=== PATIENT | male | born 1980 | race Caucasian/White ===

== ENCOUNTER 2019-09-14 06:08 | Outpatient (CLI) | payer OTHER, MEDICAID, SELFPAY ==
[2019-09-14 16:38] LABS: SARS-CoV-2 RNA PCR Negative
== END 2019-09-14 06:09 | disposition home or self-care (01) ==
LOC: ANHCOVIDDT 06:09
PROVIDERS: PCP Emergency Medicine; Visit Provider Internal Medicine Gastroenterology
DX: Z01.818 Encounter for other preprocedural examination (principal); Z11.59 Encounter for screening for other viral diseases
CPT/HCPCS: 87635; C9803; U0003

== ENCOUNTER → 2019-09-16 05:29 | Day surgery (SDC) | payer OTHER, MEDICAID, SELFPAY ==
[2019-09-13 10:00] VITALS: BMI 24.0
[2019-09-16 09:10] VITALS: BP 100/69; PULSE 94; RESP 16; TEMP 36.3; O2SAT 100
--- NOTE | 2019-09-16 09:36 | P.CONGI_ITS ---
Assessment and Plan Assessment and plan (1) Quadriplegia, unspecified: Code(s): G82.50 - Quadriplegia, unspecified Status: Acute (2) G tube feedings: Code(s): Z93.1 - Gastrostomy status Status: Acute Assessment and Plan: G-tube is deteriorated plan is for G-tube replacement this will happen today. GI Consult Note Consult date/time: 09/16/19 09:36 HPI: Meliton Richter is a 38 year old male seen because of G-tube malfunction. Patient followed by Dr. Berkowitz as an outpatient. Patient has a distant history of head trauma. He currently is disabled. Because of his disability he requires a G-tube for nutrition endoscopic G-tube was placed 2 years ago at our service. He has had a G-tube for many years prior to this. G- tube recently noted to be deteriorating by his family. He presents today for replacement of the G-tube. Patient is unable to give any additional history. Patient has a distant history of seizure disorder because of head trauma. Review of Systems Review of Systems: ROS unobtainable: Yes unobtainable due to mental status PMFSH Past Medical History Medical History G tube feedings GERD (gastroesophageal reflux disease) Seizures Traumatic brain injury Social History Social History Smoking status: Never smoker Alcohol intake: never Meds Home Medications and Allergies Home Medications Medication Instructions Recorded Confirmed Type rivaroxaban 15 mg tablet 15 mg PO DAILY #90 tablet 05/10/19 09/13/19 Rx albuterol sulfate See Rx Instructions .ROUTE .COMPLEX 06/12/19 09/13/19 History cetirizine 10 mg tablet 10 mg PO DAILY 06/12/19 09/13/19 History lorazepam 2 mg/mL oral concentrate See Rx Instructions .ROUTE 06/12/19 09/16/19 History .COMPLEX PRN metoclopramide HCl 5 mg tablet 5 mg PO .COMPLEX 06/12/19 09/16/19 History ranitidine HCl 75 mg tablet 75 mg PO .COMPLEX 06/12/19 09/13/19 History clotrimazole-betamethasone 1 See Rx Instructions .ROUTE 06/13/19 09/13/19 Rx %-0.05 % topical cream .COMPLEX #90 gm levetiracetam 100 mg/mL oral See Rx Instructions .ROUTE 06/21/19 09/13/19 Rx solution .COMPLEX #225 ml baclofen 10 mg tablet See Rx Instructions .ROUTE 07/11/19 09/13/19 Rx .COMPLEX #135 tablet phenytoin 50 mg chewable tablet See Rx Instructions .ROUTE 07/12/19 09/13/19 Rx .COMPLEX #240 tablet lisinopril 20 mg tablet 20 mg PO DAILY #90 tablet 09/05/19 09/16/19 Rx Allergies Allergy/AdvReac Type Severity Reaction Status Date / Time No Known Allergies Allergy Verified 09/16/19 09:09 Vital Signs Vital Signs - 24 hr 09/16/19 09:10 Temperature 36.3 C L Pulse Rate 94 Respiratory Rate 16 Blood Pressure 100/69 Pulse Oximetry 100 Exam Narrative: Exam Narrative: Physical exam reveals him to be alert. Vital signs are stable. Not able to communicate. He remains in a wheelchair. Physical exam reveals lungs to be clear. Heart without murmur. Abdomen is soft nontender G-tube site appears well healed. The G-tube itself is somewhat deteriorated.
--- NOTE | 2019-09-16 09:38 | P.OPB_ITS ---
Procedure Note - Brief Procedure Note - Brief Date of procedure: 09/16/19 Pre-op diagnosis: malfunctioning G tube Surgeon: Tera Diaz MD G-tube replacement procedure G-tube replacement. Preop diagnosis G-tube malfunction. History of head trauma. Postop diagnosis G-tube replaced with 20 English replacement G-tube. Description of procedure. Informed consent is obtained from patient's family. The risks benefits alternatives and indications are discussed agree to prior the procedure the risks include G-tube male position. Infection period bleeding. Risk for surgery. Or risk for endoscopic placement of G-tube. Old malfunctioning G-tube is removed with traction. No difficulties encountered. 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 Balloon is inflated. Gastric contents are withdrawn from the lumen of the G-tube. Documenting good position of this G-tube. Impression malfunctioning G-tube now replaced with new G-tube. Plan is to resume tube feedings as previously prescribed. Local care to G-tube site is advised with Betadine. Family is advised to replace the G-tube in 1 year unless G-tube replacement is a required earlier. A binder is advised to place her on the G-tube so that is not dislodged by the patient.
--- NOTE | 2019-09-16 11:45 | SUR.PREOP ---
STANDARD BALLOON REPLACEMENT KIT- RIGHT ANGLE BUSTERALEIDABOSTON SCIENTIFIC-ENDOVIVE 20FR [id number]
== END ==
PROVIDERS: PCP Emergency Medicine; Visit Provider Internal Medicine Gastroenterology
PROC: 0DH63UZ Insertion of Feeding Device into Stomach, Percutaneous Approach (ICD-10-PCS; CPT 43246; principal; 2019-09-16 10:00)
DX: K94.23 Gastrostomy malfunction (principal); G82.50 Quadriplegia, unspecified; G40.909 Epilepsy, unspecified, not intractable, without status epilepticus; Z87.820 Personal history of traumatic brain injury
CPT/HCPCS: 43762; 99212; G0463

== ENCOUNTER 2020-01-25 14:11 | Emergency (ER) | payer OTHER, MEDICAID, SELFPAY ==
--- NOTE | ~2020-01-25 | XR_ITS ---
XR G tube replacement w image 01/25/2020 16:19 Indication: Confirmation of G-tube placement Procedure: Single limited portable supine view of the left upper abdomen following contrast administr ation via pre-existing G-tube Comparison: 08/22/2017 Findings: There is normal contrast opacification of the stomach via the G-tube. No evidence for contr ast extravasation. Nonobstructive bowel gas pattern. Impression: 1: Expected position of G-tube with nonobstructive bowel gas pattern. Reviewed, dictated and finalized at location A. Impression: 1: Expected position of G-tube with nonobstructive bowel gas pattern.
[2020-01-25 14:17] VITALS: BP 113/76; PULSE 90; RESP 20; TEMP 37.1; O2SAT 100
[2020-01-25] MEDS: LIDOCAINE HCL 2% GEL UROJET 10 ML PKG (16:01)
--- NOTE | 2020-01-25 16:09 | ED.GENADULT ---
HPI - General Adult General Chief complaint: Unspecified <BOB Polk Last Filed: 01/25/20 17:12> Stated complaint: CLOGGED FEEDING TUBE <BOB Polk Last Filed: 01/25/20 17:12> Time Seen by Provider: 01/25/20 15:15 <BOB Polk Last Filed: 01/25/20 17:12> Source: patient and family <BOB Polk Last Filed: 01/25/20 17:12> Mode of arrival: ambulatory <BOB Polk Last Filed: 01/25/20 17:12> Limitations: altered mental status <BOB Polk Last Filed: 01/25/20 17:12> History of Present Illness HPI narrative: Patient is a 39-year-old male who presents for EMS for evaluation of clogged G-tube patient has longstanding history of G-tube similar occurrences in the past followed by Dr. Collins with gastroenterology. Family denies any other complaints or concerns and notes that the patient has been without issue otherwise <BOB Polk Last Filed: 01/25/20 17:12> Related Data Home medications: Home Medications Medication Instructions Recorded Confirmed cetirizine 10 mg tablet 10 mg PO DAILY 06/12/19 09/13/19 lorazepam 2 mg/mL oral concentrate See Rx Instructions .ROUTE 06/12/19 09/16/19 .COMPLEX PRN metoclopramide HCl 5 mg tablet 5 mg PO .COMPLEX 06/12/19 09/16/19 ranitidine HCl 75 mg tablet 75 mg PO .COMPLEX 06/12/19 09/13/19 <BOB Polk Last Filed: 01/25/20 17:12> Allergies/adverse reactions: Allergies Allergy/AdvReac Type Severity Reaction Status Date / Time No Known Allergies Allergy Verified 01/25/20 14:19 <BOB Polk Last Filed: 01/25/20 17:12> Review of Systems Review of Systems: ROS unobtainable: Yes unobtainable due to medical condition <BOB Polk Last Filed: 01/25/20 17:12> [facility] Past Medical History Medical History: Medical History (Updated 01/25/20 @ 17:12 by Ramsey Mayo PA-C) G tube feedings GERD (gastroesophageal reflux disease) History of gastrostomy tube placement Seizures Traumatic brain injury <Ramsey Mayo PA-C - Last Filed: 01/25/20 17:12> Social History Social History: Social History Smoking status: Never smoker Alcohol intake: never <Ramsey Mayo PA-C - Last Filed: 01/25/20 17:12> Exam Narrative: Exam Narrative: GENERAL: Well-appearing, well-nourished, and in no acute distress. HEAD: Normocephalic, atraumatic. EYES: PERRLA and EOMI. ENT: Nares clear, no rhinorrhea or epistaxis. Mucous membranes moist. CHEST: Clear to auscultation. No respiratory distress. No wheezes rales or rhonchi HEART: Regular rate and rhythm. No murmur heard. Normal peripheral pulses. ABDOMEN: Soft, nontender, nondistended EXTREMITIES: Normal range of motion. No edema. SKIN: Warm, dry, no rash. <BOB Polk Last Filed: 01/25/20 17:12> Course Course Emergency Course: Patient in the room in no distress with family aware of case findings treatment plan and diagnosis G-tube was replaced placement confirmed <Ramsey Mayo PA-C - Last Filed: 01/25/20 17:12> Vital Signs Vital signs: Vital Signs Temperature 37.1 C 01/25/20 14:17 Pulse Rate 90 01/25/20 14:17 Respiratory Rate 01/25/20 14:17 Blood Pressure 113/76 01/25/20 14:17 Pulse Oximetry 100 01/25/20 14:17 Temperature 37.1 C 01/25/20 14:17 Pulse Rate 90 01/25/20 14:17 Respiratory Rate 01/25/20 14:17 Blood Pressure 113/76 01/25/20 14:17 Pulse Oximetry 100 01/25/20 14:17 <BOB Polk Last Filed: 01/25/20 17:12> Vital Signs Temperature 37.1 C 01/25/20 14:17 Pulse Rate 90 09/23/20 14:17 Respiratory Rate 20 01/25/20 14:17 Blood Pressure 113/76 01/25/20 14:17 Pulse Oximetry 100 01/25/20 14:17 Temperature 37.1 C 01/25/20 14:17 Pulse Rate 90 01/25/20 14:17 Resp
[2020-01-25 18:12] VITALS: BP 122/80; PULSE 88; RESP 18; TEMP 36.7; O2SAT 99
== END 2020-01-25 18:13 | disposition home or self-care (01) ==
PROVIDERS: Emergency Provider Emergency Medicine; PCP Emergency Medicine
DX: K94.23 Gastrostomy malfunction (principal); K21.9 Gastro-esophageal reflux disease without esophagitis; G40.909 Epilepsy, unspecified, not intractable, without status epilepticus
CPT/HCPCS: 49450; 99284

== ENCOUNTER 2020-06-26 14:06 | Outpatient (CLI) | payer OTHER, MEDICAID, SELFPAY ==
--- NOTE | ~2020-06-26 | XR_ITS ---
XR chest 1V DATE: 06/26/2020 14:26 INDICATION: Cough TECHNIQUE: AP chest COMPARISON: 03/30/2014 portable AP chest FINDINGS: Heart size appears within normal range. No pulmonary infiltrate or consolidation, pleural e ffusion or pulmonary vascular congestion or pneumothorax. Diffuse osteopenia. IMPRESSION: No active cardiopulmonary disease Reviewed, dictated and finalized at location A. [employer]PER[employer]
== END 2020-06-26 14:07 | disposition home or self-care (01) ==
PROVIDERS: PCP Emergency Medicine; Visit Provider Emergency Medicine
DX: R05 Cough (principal)
CPT/HCPCS: 71045

== ENCOUNTER 2020-11-21 23:43 | Emergency (ER) | payer OTHER, MEDICAID, SELFPAY ==
--- NOTE | ~2020-11-21 | XR_ITS ---
EXAMINATION: XR G tube replacement w image DATE: 11/22/2020 00:40 INDICATION: Replaced percutaneous gastrostomy tube TECHNIQUE: A supine portable AP view of the abdomen and pelvis was obtained. COMPARISON: 01/25/2020 FINDINGS: Percutaneous gastrostomy tube bulb within the body of the stomach. Contrast extends to the gastrostom y tube into the stomach and into the second portion of the duodenum. Normal bowel gas pattern with no dilated loops of bowel to suggest obstruction. Visualized lung bases are clear. Heart size is normal . IMPRESSION: 1. Percutaneous gastrostomy tube and injected contrast in the stomach. Reviewed, dictated and finalized at location A.
[2020-11-21 23:43] VITALS: BP 123/80; PULSE 99; RESP 17; TEMP 36.3; O2SAT 97
--- NOTE | 2020-11-22 00:42 | ED.GENADULT ---
HPI - General Adult General Chief complaint: Unspecified Stated complaint: g-tube Time Seen by Provider: 11/21/20 23:47 History of Present Illness HPI narrative: Patient is a 40-year-old gentleman who presents the emergency department with chief complaint of pulled G-tube out. The patient around 11:00 was found to have his G-tube pulled out of his abdominal wall. The patient's family reports that he has either a 20 or 21 Angolan feeding tube that has been a long running tube. Patient has no other complaints Related Data Home Medications Medication Instructions Recorded Confirmed cetirizine 10 mg tablet 10 mg PO DAILY 06/12/19 09/13/19 ranitidine HCl 75 mg tablet 75 mg PO .COMPLEX 06/12/19 09/13/19 Allergies Allergy/AdvReac Type Severity Reaction Status Date / Time No Known Allergies Allergy Verified 11/21/20 23:56 Review of Systems Review of Systems: Narrative: A 10 system review of systems was completed on the patient and is negative except for what is stated in the HPI. Nursing and ancillary documentation was reviewed. [facility] Past Medical History Medical History G tube feedings GERD (gastroesophageal reflux disease) History of gastrostomy tube placement Seizures Surgical History Surgical History Traumatic brain injury Social History Social History Smoking status: Never smoker Alcohol intake: never Exam Narrative: Exam Narrative: GENERAL: Well-appearing, well-nourished, and in no acute distress. HEAD: Normocephalic, atraumatic. EYES: PERRLA and EOMI. ENT: Nares clear, no rhinorrhea or epistaxis. Mucous membranes moist. NECK: Supple. CHEST: Clear to auscultation. No respiratory distress. HEART: Regular rate and rhythm. No murmur heard. Normal peripheral pulses. ABDOMEN: Soft, nontender, nondistended, normal active bowel sounds. EXTREMITIES: Normal range of motion. No edema. SKIN: Warm, dry, no rash. NEURO: No focal deficits. Alert at neurological baseline. PSYCH: Normal mood and affect. Course Vital Signs Vital signs: Vital Signs Temperature 36.3 C L 11/21/20 23:43 Pulse Rate 99 11/21/20 23:43 Respiratory Rate 17 11/21/20 23:43 Blood Pressure 123/80 11/21/20 23:43 Pulse Oximetry 97 11/21/20 23:43 Temperature 36.3 C L 11/21/20 23:43 Pulse Rate 99 11/21/20 23:43 Respiratory Rate 17 11/21/20 23:43 Blood Pressure 123/80 11/21/20 23:43 Pulse Oximetry 97 11/21/20 23:43 Procedures Feeding Tube Replacement Feeding Tube #1: Feeding Tube Placement Date: 11/22/20 Feeding Tube Placement Time: 00:42 Type of Tube: gastrostomy Insertion Site Prior to Procedure: clean Tube Used for Reinsertion: Bard Angolan Tube Size (F): 20 Balloon size (mL): 7 Verification of Placement: KUB and gastrografin injection Tube Secured by: attachment device Patient Tolerated Procedure: well Additional Comments: Initially unable to pass the G-tube. A coud? catheter was used to facilitate the tract after the coud? was inserted it was removed and the G-tube was able to be passed through the ostomy site Medical Decision Making Vital Signs Vital Signs: Vital Signs Temperature 36.3 C L 11/21/20 23:43 Pulse Rate 99 11/21/20 23:43 Respiratory Rate 17 11/21/20 23:43 Blood Pressure 123/80 11/21/20 23:43 Pulse Oximetry 97 11/21/20 23:43 Temperature 36.3 C L 11/21/20 23:43 Pulse Rate 99 11/21/20 23:43 Respiratory Rate 17 11/21/20 23:43 Blood Pressure 123/80 11/21/20 23:43 Pulse Oximetry 97 11/21/20 23:43 Discharge Plan Discharge Clinical Impression: PEG tube malfunction Patient Disposition: Home, Self-Care Condition: Stable Instructions: Antibiotic Form, PEG Tube Insertion (DC), How to
[2020-11-22 01:06] VITALS: BP 100/76; PULSE 98; RESP 18; O2SAT 97
[2020-11-22 01:07] VITALS: BP 100/76; PULSE 98; RESP 18; O2SAT 97
--- NOTE | 2020-11-22 01:24 | PC.NURSE ---
called [facility] to request transport. ETA 60 min.
== END 2020-11-22 01:55 | disposition home or self-care (01) ==
PROVIDERS: Emergency Provider Emergency Medicine; PCP Emergency Medicine
DX: T85.528A Displacement of other gastrointestinal prosthetic devices, implants and grafts, initial encounter (principal); K21.9 Gastro-esophageal reflux disease without esophagitis; G40.909 Epilepsy, unspecified, not intractable, without status epilepticus; Y73.8 Miscellaneous gastroenterology and urology devices associated with adverse incidents, not elsewhere classified
CPT/HCPCS: 49450; 99284

== ENCOUNTER 2021-01-28 15:10 | Outpatient (RCR) | payer OTHER, SELFPAY ==
--- NOTE | 2021-01-29 14:42 | REHOPWC ---
SEATING EVALUATION NOTIFICATION This is to notify provider that Meliton Richter participated in a manual mobility device evaluation today. Recommendations were made specific to patient's needs. Seating Assessment documentation has been completed for detailed information on required equipment. The mobility device provider for this case is [facility]. Please note that no further care plan will be developed on this account. Thank you [facility]. Please review, sign, date and return this discharge summary LEA. I have been updated about the patient's current status and I agree with discharge from the above service at this time. Referring Physician Date
== END 2021-04-15 12:43 | disposition home or self-care (01) ==
LOC: ANHPT 15:10
PROVIDERS: PCP Emergency Medicine; Visit Provider Emergency Medicine
DX: G82.50 Quadriplegia, unspecified (principal); S06.9X9A Unspecified intracranial injury with loss of consciousness of unspecified duration, initial encounter
CPT/HCPCS: 97163

== ENCOUNTER 2021-04-27 10:19 | Emergency (ER) | payer OTHER, MEDICAID, SELFPAY ==
--- NOTE | ~2021-04-27 | XR_ITS ---
EXAMINATION: XR G tube evaluation w imaging DATE: 04/27/2021 14:37 INDICATION: Percutaneous gastrostomy tube placement TECHNIQUE: Portable supine AP view of the abdomen and pelvis was obtained. COMPARISON: 11/22/2020 FINDINGS: Again seen is injected contrast material body the stomach which obscures the tip of a percu taneous gastrostomy tube. No dilated loops of gas-filled bowel to suggest obstruction. 2 mm density p rojecting over the mid right kidney potentially a renal stone. IMPRESSION: 1. . Status post gastrostomy tube tip of injected contrast in the body the stomach. 2. Possible 2 mm right renal stone. Reviewed, dictated and finalized at location H. [employer] IMPRESSION: 1. . Status post gastrostomy tube tip of injected contrast in the body the stom ach. 2. Possible 2 mm right renal stone.
[2021-04-27 10:21] VITALS: BP 102/70; PULSE 114; RESP 29; TEMP 36.9; O2SAT 100
[2021-04-27 10:31] VITALS: RESP 30; O2SAT 97
[2021-04-27 11:33] VITALS: BP 99/70; PULSE 119; RESP 30; O2SAT 98
--- NOTE | 2021-04-27 12:53 | ED.GENADULT ---
HPI - General Adult General Chief complaint: Unspecified Stated complaint: pulled g tube out Time Seen by Provider: 04/27/21 12:16 Source: EMS and RN notes reviewed Mode of arrival: EMS Limitations: clinical condition and other (History of traumatic brain injury, nonverbal) History of Present Illness HPI narrative: Patient is a 40-year-old male brought in by due to pulling his G-tube out and also been having URI symptoms for the past 2 days. Mother states that the patient must of pulled it out this morning but last time she saw the patient with a G-tube in place was last night. Patient is nonverbal due to traumatic brain injury and unable to give any history. Related Data Home Medications Medication Instructions Recorded Confirmed cetirizine 10 mg tablet 10 mg PO DAILY 06/12/19 04/11/21 ranitidine HCl 75 mg tablet 75 mg PO .COMPLEX 06/12/19 04/11/21 Allergies Allergy/AdvReac Type Severity Reaction Status Date / Time No Known Allergies Allergy Verified 04/27/21 10:29 Review of Systems Review of Systems: ROS unobtainable: Yes unobtainable due to medical condition and unobtainable due to mental status Constitutional: Constitutional: Reports as per HPI [facility] Past Medical History Medical History G tube feedings GERD (gastroesophageal reflux disease) History of gastrostomy tube placement Seizures Surgical History Surgical History Traumatic brain injury Social History Social History Smoking status: Never smoker Alcohol intake: never Gender identity (if verbalized by the patient): Male Exam Const: General: cooperative, comfortable, no acute distress, alert and awake HENMT: Head: normal to inspection, normocephalic and atraumatic Ears: hearing grossly normal bilaterally, TM normal on the right and TM normal on the left General nose exam: Normal external nose present, Normal nares present and No nasal discharge present Face and sinus: normal facial exam Mouth: Yes Normal oral and palatal mucosa present, Yes lip normal, Yes tongue normal and Yes oropharynx normal Throat: posterior oropharynx normal, tonsils normal and uvula midline Eyes: General: appearance normal, both eyes and all related structures Pupils: Equal, round and reactive pupils present EOM: EOMs intact bilaterally Neck: Neck: normal visual inspection, full ROM, no lymphadenopathy and no meningeal signs Chest: Chest palpation & inspection: normal inspection of the chest Resp: Effort & Inspection: normal respiratory effort, able to speak in complete sentences, no respiratory distress and not tachypneic Auscultation: clear to auscultation bilaterally, no crackles, no rales, no rhonchi and no wheezes Cardio: Rhythm: regular rhythm GI: Inspection: normal to inspection GI Palp: Yes Soft to palpation and No Rigid due to palpation Auscultation: normal bowel sounds Skin: General skin exam: normal color, no rashes or lesions noted, elasticity normal and turgor normal Extrem: General: capillary refill normal Psych: Appearance: grossly normal and well kempt Course Vital Signs Vital signs: Vital Signs Temperature 36.9 C 04/27/21 10:21 Pulse Rate 114 H 04/27/21 10:21 Respiratory Rate 29 H 04/27/21 10:21 Blood Pressure 102/70 04/27/21 10:21 Pulse Oximetry 100 04/27/21 10:21 Temperature 36.9 C 04/27/21 10:21 Pulse Rate 119 H 04/27/21 11:33 Respiratory Rate 30 H 04/27/21 11:33 Blood Pressure 99/70 L 04/27/21 11:33 Pulse Oximetry 98 04/27/21 11:33 Procedures Feeding Tube Replacement Feeding Tube #1: Feeding Tube Placement Date: 04/27/21 Feeding Tube Placement Time: 14:17 Type of Tube: G-J Tube and other Insertion Site Prior to Procedure: clean Tube Used for Reinsertion: Tamayo Montenegrin Tube Size (F): 14
--- NOTE | 2021-04-27 13:34 | PC.NURSE ---
pt's POA is refusing for pt to get bloodwork or an IV and just wanting EDP to place G tube back in. EDP attempted to place Gtube but was unable to advance. EDP contacting Dr. Diaz.
[2021-04-27 16:21] VITALS: BP 138/112; PULSE 120; RESP 16; O2SAT 97
[2021-04-27 17:14] VITALS: BP 106/88; PULSE 115; RESP 25; O2SAT 97
== END 2021-04-27 17:48 | disposition home or self-care (01) ==
PROVIDERS: Emergency Provider Emergency Medicine; PCP Emergency Medicine
DX: Z43.1 Encounter for attention to gastrostomy (principal); K21.9 Gastro-esophageal reflux disease without esophagitis; Z87.820 Personal history of traumatic brain injury
CPT/HCPCS: 49465; 99284

== ENCOUNTER 2021-05-01 00:39 | Day surgery (SDC) | payer OTHER, MEDICAID, SELFPAY ==
[2021-04-29 16:11] VITALS: BMI 25.7
[2021-05-01 10:05] VITALS: BP 88/65; PULSE 100; RESP 18; TEMP 36.2; O2SAT 99
--- NOTE | 2021-05-01 10:25 | WPDANESEPPF ---
Anes - Initial Pre Proc Eval Procedure: Operation Date: 05/01/21 11:00 Proposed Procedures p Replacement of G-Tube - Tera Diaz MD Date/Time: 05/01/21 10:25 Surgeon: Tera Diaz MD Pre Op Diagnosis: malfunctioning g tube Patient Data Age: 40 Gender: M Height: 1.63 m Weight: 68 kg Last Vital Signs Temp 36.2 C L 05/01/21 10:05 Pulse 100 05/01/21 10:05 Resp 18 05/01/21 10:05 BP 88/65 L 05/01/21 10:05 Pulse Ox 99 05/01/21 10:05 Allergies Allergy/AdvReac Type Severity Reaction Status Date / Time No Known Allergies Allergy Verified 05/01/21 10:02 Home Medications Medication Instructions Recorded Confirmed Type cetirizine 10 mg tablet 10 mg PO DAILY PRN 06/12/19 05/01/21 History ranitidine HCl 75 mg tablet 75 mg PO BID 06/12/19 05/01/21 History albuterol sulfate See Rx Instructions .ROUTE 01/17/20 05/01/21 Rx .COMPLEX #15 ml clotrimazole-betamethasone 1 See Rx Instructions .ROUTE 06/05/20 05/01/21 Rx %-0.05 % topical cream .COMPLEX #90 gm lorazepam 2 mg/mL oral concentrate See Rx Instructions .ROUTE 08/25/20 05/01/21 Rx .COMPLEX PRN #30 ml lisinopril 20 mg tablet 20 mg PO DAILY #90 tablet 12/17/20 05/01/21 Rx rivaroxaban 15 mg tablet 15 mg PO DAILY #90 tablet 01/25/21 05/01/21 Rx nystatin 100,000 unit/gram topical See Rx Instructions .ROUTE 04/05/21 05/01/21 Rx cream .COMPLEX #60 g azithromycin 250 mg tablet See Rx Instructions PO .COMPLEX #6 04/22/21 05/01/21 Rx tablet baclofen 15 mg PO TID 04/29/21 05/01/21 History levetiracetam 2.5 mg PO DAILY 04/29/21 05/01/21 History metoclopramide HCl [Reglan] 5 mg PO Q8H PRN 04/29/21 05/01/21 History Patient hx anesthesia problems: none Family hx anesthesia problems: none Results Review: All pre-operative results and documents have been reviewed as part of the pre-operative evaluation. [facility] Past Medical History Medical History G tube feedings GERD (gastroesophageal reflux disease) History of gastrostomy tube placement Seizures Surgical History Surgical History Traumatic brain injury Social History Social History Smoking status: Never smoker Alcohol intake: never Living arrangements: with family Gender identity (if verbalized by the patient): Male Spiritual care concerns: No Anes - Eval Final PreProcedure Day of Procedure 05/01/21 10:25 Patient weight: overweight Heart: regular rate and rhythm Lungs: clear to auscultation and normal air movement Airway: Mallampati scale class II Neurological: alert and oriented Last oral intake: >/= 8 hours Emergent: no Anesthetic plan: proceed Anesthesia type and monitoring: general GIVS and standard monitoring Results Review: All pre-operative results and documents have been reviewed as part of the pre-operative evaluation. Informed Consent: The patient's anesthetic plan and its attendant risks and benefits were discussed with the patient/family/POA. Questions were solicited and answers provided to the satisfaction of the patient/family/POA.
[2021-05-01] MEDS: LACTATED RINGERS 1,000 ML 150 ML IV CONT (10:39)
--- NOTE | 2021-05-01 10:39 | WPDGICN ---
Assessment and Plan Assessment and plan (1) G tube feedings: Code(s): Z93.1 - Gastrostomy status Status: Acute Assessment and Plan: Patient recently had G-tube dislodged. Current Tamayo catheter G-tube is not functioning well. Plan is for EGD and placement of a more permanent 20 [place]uvian gastrostomy tube if possible today. (2) Traumatic brain injury: Qualifiers: Encounter type: sequela Loss of consciousness presence/duration: with LOC of unspecified duration Qualified Code(s): S06.9X9S - Unspecified intracranial injury with loss of consciousness of unspecified duration, sequela Code(s): S06.9X9A - Unspecified intracranial injury with loss of consciousness of unspecified duration, initial encounter Status: Acute GI Consult Note Consult date/time: 05/01/21 10:39 HPI: Meliton Richter is a 40 year old male Presents for replacement of G-tube. Patient has a history of head trauma. He has required G-tube feedings for more than 10 years. This was replaced in September of 2019. Patient apparently had his G-tube dislodged over the weekend. He presented to the emergency room in the orifice a closed a great deal. The emergency room was only able to replace it with a 14 [place] Tamayo catheter. His mother who is a email designer states this is too small for medications and feeding. Patient presents today for more permanent replacement of this G-tube. Review of Systems Review of Systems: ROS unobtainable: Yes unobtainable due to medical condition PMFSH Past Medical History Medical History G tube feedings GERD (gastroesophageal reflux disease) History of gastrostomy tube placement Seizures Surgical History Surgical History Traumatic brain injury Social History Social History Smoking status: Never smoker Alcohol intake: never Living arrangements: with family Gender identity (if verbalized by the patient): Male Spiritual care concerns: No Meds Home Medications and Allergies Home Medications Medication Instructions Recorded Confirmed Type cetirizine 10 mg tablet 10 mg PO DAILY PRN 06/12/19 05/01/21 History ranitidine HCl 75 mg tablet 75 mg PO BID 06/12/19 05/01/21 History albuterol sulfate See Rx Instructions .ROUTE 01/17/20 05/01/21 Rx .COMPLEX #15 ml clotrimazole-betamethasone 1 See Rx Instructions .ROUTE 06/05/20 05/01/21 Rx %-0.05 % topical cream .COMPLEX #90 gm lorazepam 2 mg/mL oral concentrate See Rx Instructions .ROUTE 08/25/20 05/01/21 Rx .COMPLEX PRN #30 ml lisinopril 20 mg tablet 20 mg PO DAILY #90 tablet 12/17/20 05/01/21 Rx rivaroxaban 15 mg tablet 15 mg PO DAILY #90 tablet 01/25/21 05/01/21 Rx nystatin 100,000 unit/gram topical See Rx Instructions .ROUTE 04/05/21 05/01/21 Rx cream .COMPLEX #60 g azithromycin 250 mg tablet See Rx Instructions PO .COMPLEX #6 04/22/21 05/01/21 Rx tablet baclofen 15 mg PO TID 04/29/21 05/01/21 History levetiracetam 2.5 mg PO DAILY 04/29/21 05/01/21 History metoclopramide HCl [Reglan] 5 mg PO Q8H PRN 04/29/21 05/01/21 History Allergies Allergy/AdvReac Type Severity Reaction Status Date / Time No Known Allergies Allergy Verified 05/01/21 10:02 Vital Signs Vital Signs - 24 hr 05/01/21 10:05 Temperature 97.1 F L Pulse Rate 100 Respiratory Rate 18 Blood Pressure 88/65 L Pulse Oximetry 99 Exam Narrative: Physical exam reveals patient to be nonverbal. HEENT exam reveals no icterus. He has significant flexion contractures. Uses a wheelchair. Lungs are clear to auscultation and percussion. Heart is without murmur or extra sounds. Abdominal exam bowel sounds are present soft nontender with no hepatosplenomegaly. Gastro cutaneous fistula appears well healed but contracted. A 14 [place]uvian G-tube Tamayo catheter is in place functioning as a G
[2021-05-01 11:40] VITALS: BP 83/42; PULSE 93; RESP 28; O2SAT 97
[2021-05-01 11:50] VITALS: BP 92/48; PULSE 85; RESP 29; O2SAT 99
[2021-05-01 12:00] VITALS: BP 85/53; PULSE 81; RESP 20; O2SAT 98
== END 2021-05-01 12:30 | disposition home or self-care (01) ==
PROVIDERS: PCP Emergency Medicine; Visit Provider Internal Medicine Gastroenterology
PROC: 0DH63UZ Insertion of Feeding Device into Stomach, Percutaneous Approach (ICD-10-PCS; CPT 43246; principal; 2021-05-01 11:00)
DX: K94.23 Gastrostomy malfunction (principal); Z87.820 Personal history of traumatic brain injury
CPT/HCPCS: 43246; J2704; J7120

== ENCOUNTER 2022-08-06 16:40 | Emergency (ER) | payer OTHER, MEDICAID, SELFPAY ==
--- NOTE | ~2022-08-06 | XR_ITS ---
EXAMINATION: XR chest 1V portable Exam Date/Time: 08/06/2022 17:03 CDT HISTORY: ams Comparison: 06/26/2020. RESULT: Lines, tubes, and devices: Possible gallstone in the right upper quadrant. Lungs and pleura: Subsegmental left medial basal and segmental/lobar left lower lung airspace diseas e. Diffuse reticular opacities. Cardiomediastinal silhouette: Stable. Other: No acute osseous or upper abdominal finding. IMPRESSION: Pulmonary opacities may represent pneumonia and/or pulmonary edema with bibasilar atelectasis. Reviewed, dictated and finalized at location K. IMPRESSION: Pulmonary opacities may represent pneumonia and/or pulmonary edema with bibasil ar atelectasis.
--- NOTE | ~2022-08-06 | CT_ITS ---
EXAMINATION: CT brain wo con DATE: 08/06/2022 18:27 INDICATION: change in behavior . TECHNIQUE: Computed tomography (CT) of the head was performed without intravenous contrast. The mA wa s adjusted according to patient size. Iterative reconstruction technique was employed. The dose-lengt h product was 681.00 mGy-cm. COMPARISON: None. FINDINGS: No acute intracranial hemorrhage or extra-axial fluid collection. No hydrocephalus, mass, or herniation. No acute ischemic infarct. Unremarkable dural venous sinus attenuation. No acute osseous abnormality. Mucosal thickening and aerated secretions in the left sphenoid sinus. Bilateral mastoid air cell opac ification, with middle ear fluid also noted bilaterally. The remaining aerated spaces are clear. Moderate atrophy and mild chronic white matter change. Mild atherosclerotic intracranial calcificatio n. Partially empty sella. IMPRESSION: No acute intracranial process. Bilateral otomastoiditis effusions, correlate for clinical findings of otomastoiditis. Left sphenoid sinus findings may represent acute sinusitis in the appropriate clinic al context. Reviewed, dictated and finalized at location K. IMPRESSION: No acute intracranial process. Bilateral otomastoiditis effusions, correlate fo r clinical findings of otomastoiditis. Left sphenoid sinus findings may represe nt acute sinusitis in the appropriate clinical context.
--- NOTE | ~2022-08-06 | CT_ITS ---
EXAMINATION: CT abdomen pelvis w con DATE: 08/06/2022 18:39 INDICATION: lower abdominal pain TECHNIQUE: Computed tomography (CT) of the abdomen and pelvis was performed with 100 mL Omnipaque-350 intravenous contrast. Automated exposure control and iterative reconstruction technique were employe d. The dose-length product was 672.28 mGy-cm. COMPARISON: 08/30/2013. FINDINGS: Lower thorax: Small right and trace left pleural fluid collections. Dependent atelectasis Liver: Normal. Biliary/Gallbladder: Cholelithiasis. No bile duct dilation. Pancreas: No mass or duct dilation. Spleen: Normal. Adrenals:No mass. Kidneys: Punctate bilateral nonobstructing stones. No hydronephrosis or suspicious mass. GI tract: PEG tube, in good position. Antral wall edema. No small or large bowel dilation. Normal tete endix. Mesentery/Peritoneum: No ascites, mass, or free air. Stable enlarged periportal lymph node. Retroperitoneum: No mass. Prominent periaortic lymph nodes. Pelvis: Bladder wall thickening and inflammatory change. Hyperdensity along the posterior and depende nt bladder mucosa. Soft Tissues: Inguinal lymphadenopathy. Bones: No acute osseous finding. IMPRESSION: Small right and trace left pleural effusions. Antral gastritis. Cystitis. Bladder wall calcifications versus layering intraluminal calcification or debris. Stable periportal and bilateral inguinal lymph adenopathy. Reviewed, dictated and finalized at location K. IMPRESSION: Small right and trace left pleural effusions. Antral gastritis. Cystitis. Bladd er wall calcifications versus layering intraluminal calcification or debris. St able periportal and bilateral inguinal lymphadenopathy.
[2022-08-06 16:41] VITALS: BP 108/76; RESP 20; TEMP 37.7; O2SAT 98
--- NOTE | 2022-08-06 17:04 | ECG_ITS ---
Measurements Intervals [place] Rate: 97 P: 139 UT: 149 QRS: 50 QRSD: 78 T: 114 QT: 334 QTc: 424 Interpretive Statements NORMAL SINUS RHYTHM LEFT ATRIAL ENLARGEMENT [-0.15mV P WAVE IN V1/V2] LOW QRS VOLTAGE IN EXTREMITY LEADS [QRS DEFLECTION < 0.5 mV IN LIMB LEADS] ABNORMAL QRS-T ANGLE [QRS-T AXIS DIFFERENCE > 60] ABNORMAL ECG NO PREVIOUS ECG AVAILABLE FOR COMPARISON Electronically Signed On 08-06-2022 17:59:02 CDT by Robbie Sears M.D.
[2022-08-06 17:30] VITALS: BP 122/71; PULSE 111; RESP 23; O2SAT 100
[2022-08-06 18:00] LABS: Lactic Acid Reflex 1.5 mmol/L (0.7-2.0)
[2022-08-06 18:02] LABS: Alanine Aminotransferase 70 U/L (6-50); Albumin Level 3.8 g/dL (3.5-5.1); Alkaline Phosphatase 127 U/L (38-126); Anion Gap 9 mmol/L (8-16); Aspartate Amino Transferase 64 U/L (17-59); Bilirubin,Total 0.6 mg/dL (0.2-1.3); Blood Urea Nitrogen 18 mg/dL (9-20); Calcium 8.4 mg/dL (8.4-10.2); Carbon Dioxide 24 mmol/L (22-30); Chloride 100 mmol/L (98-107); Estimated CRCL calculation 155 ml/min; Estimated Glomerular Filt Rate > 60; Glucose 96 mg/dL (65-110); Potassium 4.4 mmol/L (3.4-5.0); Sodium 133 mmol/L (137-145)
[2022-08-06 18:05] LABS: Basophils Percent Auto 0.3 % (0.2-1.2); Eosinophils Percent Auto 0.3 % (0-4.4); Hematocrit 42.4 % (42.0-52.0); Hemoglobin 14.4 g/dL (14.0-18.0); Immature Granulocyte Absolute 0.02 K/mm3 (0.00-0.031); Immature Granulocyte Percent A 0.3 % (0-0.5); Lymphocytes Absolute Auto 0.94 K/mm3 (0.9-3.2); Lymphocytes Percent Auto 15.6 % (18.3-44.2); Mean Corpuscular Hemoglobin 33.8 pg (26-34); Mean Corpuscular Volume 99.5 fl (80-100); Mean Platelet Volume 11.8 fl (7.4-10.4); Monocytes Absolute Auto 0.9 K/mm3 (0.1-0.6); Monocytes Percent Auto 15.3 % (2.6-8.5); Neutrophils Absolute Auto 4.1 K/mm3 (1.3-6.7); Neutrophils Percent Auto 68.2 % (45.5-73.1); Platelet Count Result 213 k/mm3 (150-375); Red Blood Count 4.26 M/mm3 (4.6-6.20); Red Cell Distribution Width 13.3 % (11.5-14.5)
[2022-08-06 18:11] LABS: INR 1.3; Prothrombin Time 15.4 Seconds (11.1-14.7)
[2022-08-06 18:13] LABS: Partial Thromboplastin Time 30.3 SECONDS (22.3-36.8)
--- NOTE | 2022-08-06 18:20 | ED.GENADULT ---
HPI - General Adult General Chief complaint: Urogenital-Male Stated complaint: urinary symptoms Time Seen by Provider: 08/06/22 16:46 Source: family, EMS, RN notes reviewed and old records reviewed Mode of arrival: EMS Limitations: physical limitation and clinical condition History of Present Illness HPI narrative: This is a 41 year old male with history of traumatic brain injury, nonverbal who presents for evaluation of change in behavior. Patient's mother is at bedside to provide history since he is nonverbal. She states he has been moaning today which is unlikely himself. She denies nausea, vomiting, diarrhea, fever, cough. She denies any wounds other than fungal infection to his groin. He hs g tube in place and she reports that is has been functioning with out any difficulties. Related Data Home Medications Medication Instructions Recorded Confirmed cetirizine 10 mg tablet (Zyrtec) 10 mg PO DAILY PRN Allergy Symptoms 06/12/19 06/11/21 ranitidine HCl 75 mg tablet 75 mg PO BID 06/12/19 06/11/21 (Zantac) metoclopramide HCl 5 mg tablet 5 mg PO Q8H PRN Nausea 04/29/21 06/11/21 (Reglan) Allergies Allergy/AdvReac Type Severity Reaction Status Date / Time No Known Allergies Allergy Verified 08/06/22 17:39 Review of Systems Review of Systems: ROS unobtainable: Yes unobtainable due to medical condition PMFSH Past Medical History Medical History Abnormal urine odor Agitation Dysphagia Dysuria Essential (primary) hypertension G tube feedings GERD (gastroesophageal reflux disease) H/O traumatic brain injury History of gastrostomy tube placement Seizures Unspecified convulsions URI, acute Vitamin D deficiency Volvulus of stomach Surgical History Surgical History Gastrostomy status Traumatic brain injury Social History Social History Smoking status: Never smoker Alcohol intake: never Living arrangements: with family Gender identity (if verbalized by the patient): Male Spiritual care concerns: No Exam Const: Other: patient eyes open and moaning. He is nonverbal with contractures HENMT: Mouth: Yes Normal oral and palatal mucosa present and Yes moist mucous membranes Throat: posterior oropharynx normal Eyes: Pupils: Equal, round and reactive pupils present EOM: EOMs intact bilaterally Chest: Chest palpation & inspection: normal inspection of the chest Resp: Effort & Inspection: normal respiratory effort Auscultation: clear to auscultation bilaterally Cardio: Rate: tachycardic Rhythm: regular rhythm Heart sounds: no murmurs GI: GI Palp: Yes Soft to palpation, No Tenderness to palpation present (GI), No Guarding due to palpation present (GI) and No Rigid due to palpation Auscultation: normal bowel sounds Other: g tube in place : Penis: Yes circumcised Scrotum: scrotum normal Skin: General skin exam: normal color Rashes: no rashes Wounds: no wounds Neuro: Other: contractures Psych: Other: moaning Course Reevaluation(s) Reevaluation #1: I have discussed with patient's mother that he has been found to have cystitis. Labs are unremarkable other than abnormal urinalysis. She understands that are performing evaluation for sepsis. He was mildly tachycardic but that has resolved. She states she does not want him admitted and she wants to take him home. She states she will monitor him closely and she will bring him back. She appears reliable. Date: 08/06/22 Time: 21:14 Vital Signs Vital signs: Vital Signs Temperature 99.8 F H 08/06/22 16:41 Respiratory Rate 20 08/06/22 16:41 Blood Pressure 108/76 08/06/22 16:41 Pulse Oximetry 98 08/06/22 16:41 Oxygen Delivery Room Air 08/06/22 16:41 Temperature 99.8 F H 08/06/22 16:41 Pulse Rate 90 08/07/22 00:38 Respiratory Rate 17
[2022-08-06 18:21] LABS: Appearance Urine Cloudy (Clear); Bacteria Urine 4+ /hpf; Bilirubin Urine Negative (Negative); Blood Urine Negative (Negative); Color Urine Yellow (Yellow); Glucose Urine UA Negative (Negative); Hyaline Casts Urine Present /lpf; Ketones Urine Negative (Negative); Leukocyte Esterase Ur 2+ LEU/UL (Negative); Nitrate Urine Positive (Negative); Protein Urine Trace mg/dL (Negative); Specific Grav Ur 1.019 (1.001-1.035); Squamous Epithelial Cell Urine None seen /hpf (Few); WBC Urine 21-50 /hpf
[2022-08-06 18:22] LABS: Add Urine Microscopic? YES
[2022-08-06 18:44] VITALS: BP 107/65; PULSE 97; RESP 22; O2SAT 94
[2022-08-06] MEDS: SODIUM CHLORIDE 0.9% IV 1,000 ML 999 ML IV CONT (18:44)
[2022-08-06 19:33] LABS: Influenza A QL RT-PCR Negative (Negative); Influenza B QL RT-PCR Negative (Negative); SARS-CoV-2 RNA PCR Negative
[2022-08-07 00:38] VITALS: BP 103/64; PULSE 90; RESP 17; O2SAT 93
== END 2022-08-07 00:40 | disposition home or self-care (01) ==
PROVIDERS: Emergency Provider General Practice; PCP Emergency Medicine
DX: N30.90 Cystitis, unspecified without hematuria (principal); Z20.822 Contact with and (suspected) exposure to COVID-19; Z87.820 Personal history of traumatic brain injury; I10 Essential (primary) hypertension; E55.9 Vitamin D deficiency, unspecified; K21.9 Gastro-esophageal reflux disease without esophagitis; Z93.1 Gastrostomy status; R94.31 Abnormal electrocardiogram [ECG] [EKG]; R91.8 Other nonspecific abnormal finding of lung field; K29.70 Gastritis, unspecified, without bleeding; R93.0 Abnormal findings on diagnostic imaging of skull and head, not elsewhere classified
CPT/HCPCS: 36415; 70450; 71045; 74177; 80053; 81001; 83605; 85025; 85610; 85730; 87040; 87077; 87086; 87186; 87636; 93005; 96365; 96366; 96367; 99284; J0131; J0696; J7030; Q9967

== ENCOUNTER 2023-03-03 05:42 | Day surgery (SDC) | payer OTHER, MEDICAID, SELFPAY ==
[2023-03-03] VITALS (7 sets, daily range): BP systolic 83–97; BP diastolic 53–64; PULSE 77–90; RESP 16–24; TEMP 36.7; O2SAT 97–100
[2023-03-03] MEDS: LACTATED RINGERS 1,000 ML 150 ML IV CONT (12:30)
--- NOTE | 2023-03-03 12:37 | PM.HPGS ---
History of Present Illness History of Present Illness Consent: Risks, benefits, and alternatives have been discussed and questions answered. Patient agrees to proceed with procedure. Chief complaint: Gastrostomy status Narrative: Meliton Richter is a 42 year old male Presents with malfunctioning G-tube. Patient has a history of traumatic brain injury. He requires G-tube feedings. Most recent replacement of this G-tube was in April of 2022. In the antrum the G-tube has deteriorated. Patient presents today for G-tube replacement. Patient is nonverbal. He has significant flexion contractures. He relies on PEG tube for nutrition. Review of Systems Review of Systems: Review of systems noncontributory ROS unobtainable: Yes unobtainable due to mental status PMFSH Past Medical History Medical History Abnormal urine odor Agitation Dysphagia Dysuria Essential (primary) hypertension G tube feedings GERD (gastroesophageal reflux disease) H/O traumatic brain injury History of gastrostomy tube placement Seizures Unspecified convulsions URI, acute Vitamin D deficiency Volvulus of stomach Surgical History Surgical History Gastrostomy status Traumatic brain injury Social History Social History Smoking status: Former smoker Tobacco type: cigarettes Alcohol intake: former Substance use: unknown Substance use type: does not use Lack of Transportation: No Lack of Food: Never True Current Housing: I Have Housing Concerned About Future Housing: No Difficulty Paying Gas/Electric Bills: No Difficulty Paying for Meds: No Currently Unemployed: No Education: Decline to Answer Difficulty w/ Childcare or Family Care: No Living arrangements: with family Gender identity (if verbalized by the patient): Male Spiritual care concerns: No Meds Home Medications and Allergies Home Medications Medication Instructions Recorded Confirmed Type lorazepam 2 mg/mL oral concentrate See Rx Instructions .Route 02/11/23 03/03/23 Rx (Lorazepam Intensol) .COMPLEX PRN Anxiety #30 mL Stool Softner 50 mg feeding tube DAILY 02/25/23 03/03/23 History baclofen 10 mg tablet 15 mg feeding tube DAILY 02/25/23 03/03/23 History cholecalciferol (vitamin D3) 50 50 mcg feeding tube DAILY 02/25/23 03/03/23 History mcg (2,000 unit) tablet (Vitamin D3) dextromethorphan-guaifenesin 20 1 tablet feeding tube QID PRN MUCUS 02/25/23 03/03/23 History mg-400 mg tablet (Mucus Relief DM) famotidine 20 mg tablet 20 mg feeding tube DAILY 02/25/23 03/03/23 History levetiracetam 100 mg/mL oral 250 mg feeding tube DAILY 02/25/23 03/03/23 History solution lisinopril 20 mg tablet 20 mg feeding tube DAILY 02/25/23 03/03/23 History rivaroxaban 15 mg tablet (Xarelto) 15 mg G-tube DAILY 02/25/23 03/03/23 History Allergies Allergy/AdvReac Type Severity Reaction Status Date / Time No Known Allergies Allergy Verified 03/03/23 12:23 Exam Narrative: physical exam reveals patient be confined to a wheelchair. He has significant flexion contractures. Vital signs are stable. He is alert but nonverbal anicteric. HEENT exam is noncontributory. Oral Teeth in poor condition. Lungs are clear. Heart is without murmur. Abdomen bowel sounds present soft nontender peg tube in left upper quadrant the fistula well healed the G-tube has deteriorated. Assessment and Plan Assessment and plan (1) G tube feedings: Code(s): Z93.1 - Gastrostomy status Status: Acute Assessment and Plan: Patient has an existing G-tube that is almost 2 years old appears to be deteriorated. A this will need to be replaced. (2) PEG (percutaneous endoscopic gastrostomy) adjustment/replacement/removal: Code(s): Z43.1 - Encounter for attention to gastros
--- NOTE | 2023-03-03 13:06 | WPDANESEPPF ---
Anes - Initial Pre Proc Eval Procedure: Operation Date: 03/03/23 13:00 Proposed Procedures p Removal And Replacement Of Gastrostomy Tube - Tera Diaz MD s Percutaneous Endoscopic Gastrostomy - Tera Diaz MD Date/Time: 03/03/23 13:06 Surgeon: Tera Diaz MD Pre Op Diagnosis: Gastrostomy status Patient Data Age: 42 Gender: M Height: 1.65 m Weight: 54.5 kg Last Vital Signs Temp 98.1 F 03/03/23 12:15 Pulse 90 03/03/23 12:15 Resp 16 03/03/23 12:15 BP 89/59 L 03/03/23 12:15 Pulse Ox 100 03/03/23 12:15 O2 Del Method Room Air 03/03/23 12:15 Allergies Allergy/AdvReac Type Severity Reaction Status Date / Time No Known Allergies Allergy Verified 03/03/23 12:23 Home Medications Medication Instructions Recorded Confirmed Type lorazepam 2 mg/mL oral concentrate See Rx Instructions .Route 02/11/23 03/03/23 Rx (Lorazepam Intensol) .COMPLEX PRN Anxiety #30 mL Stool Softner 50 mg feeding tube DAILY 02/25/23 03/03/23 History baclofen 10 mg tablet 15 mg feeding tube DAILY 02/25/23 03/03/23 History cholecalciferol (vitamin D3) 50 50 mcg feeding tube DAILY 02/25/23 03/03/23 History mcg (2,000 unit) tablet (Vitamin D3) dextromethorphan-guaifenesin 20 1 tablet feeding tube QID PRN MUCUS 02/25/23 03/03/23 History mg-400 mg tablet (Mucus Relief DM) famotidine 20 mg tablet 20 mg feeding tube DAILY 02/25/23 03/03/23 History levetiracetam 100 mg/mL oral 250 mg feeding tube DAILY 02/25/23 03/03/23 History solution lisinopril 20 mg tablet 20 mg feeding tube DAILY 02/25/23 03/03/23 History rivaroxaban 15 mg tablet (Xarelto) 15 mg G-tube DAILY 02/25/23 03/03/23 History Patient hx anesthesia problems: none Family hx anesthesia problems: none Results Review: All pre-operative results and documents have been reviewed as part of the pre-operative evaluation. [facility] Past Medical History Medical History Abnormal urine odor Agitation Dysphagia Dysuria Essential (primary) hypertension G tube feedings GERD (gastroesophageal reflux disease) H/O traumatic brain injury History of gastrostomy tube placement Seizures Unspecified convulsions URI, acute Vitamin D deficiency Volvulus of stomach Surgical History Surgical History Gastrostomy status Traumatic brain injury Social History Social History Smoking status: Former smoker Tobacco type: cigarettes Alcohol intake: former Substance use: unknown Substance use type: does not use Lack of Transportation: No Lack of Food: Never True Current Housing: I Have Housing Concerned About Future Housing: No Difficulty Paying Gas/Electric Bills: No Difficulty Paying for Meds: No Currently Unemployed: No Education: Decline to Answer Difficulty w/ Childcare or Family Care: No Living arrangements: with family Gender identity (if verbalized by the patient): Male Spiritual care concerns: No Anes - Eval Final PreProcedure Day of Procedure 03/03/23 13:06 Patient weight: normal Heart: regular rate and rhythm Lungs: clear to auscultation Airway: Mallampati scale (unable to evaluate) Neurological: alert and oriented Last oral intake: >/= 8 hours ASA classification: IV Emergent: no Anesthetic plan: proceed Anesthesia type and monitoring: general GIVS and standard monitoring Results Review: All pre-operative results and documents have been reviewed as part of the pre-operative evaluation. Informed Consent: The patient's anesthetic plan and its attendant risks and benefits were discussed with the patient/family/POA. Questions were solicited and answers provided to the satisfaction of the patient/family/POA.
--- NOTE | 2023-03-03 14:34 | SUR.PHASEII ---
pt had new peg tube inserted. family states this new enfit system does not fit the feeeding tube system they currently have at home. Donte is calling [employer] to try mansoor shinn adaptor/new tubing that will fit.
--- NOTE | 2023-03-03 15:30 | SUR.PHASEII ---
Bozena spoke with pts current med equipment supplier. they checked and pts current feeding tube system will work with new enfit. explained/demonstrated how this can be done by unscrewing the old kirit tree off and then screwing the new enfit onto the tubing. pts father and stepmom. both voiced understanding. they will call if any questions or concerns.
== END 2023-03-03 15:27 | disposition home or self-care (01) ==
PROVIDERS: PCP Emergency Medicine; Visit Provider Internal Medicine Gastroenterology
PROC: (CPT 43999; principal; 2023-03-03 13:00)
PROC: 0DH63UZ Insertion of Feeding Device into Stomach, Percutaneous Approach (ICD-10-PCS; CPT 43246; 2023-03-03 13:00)
DX: Z43.1 Encounter for attention to gastrostomy (principal); G93.1 Anoxic brain damage, not elsewhere classified; I10 Essential (primary) hypertension; K21.9 Gastro-esophageal reflux disease without esophagitis; G40.909 Epilepsy, unspecified, not intractable, without status epilepticus; E55.9 Vitamin D deficiency, unspecified; Z87.891 Personal history of nicotine dependence
CPT/HCPCS: 43246; J2704; J7120

== ENCOUNTER 2023-04-22 13:02 | Outpatient (CLI) | payer OTHER, MEDICAID, SELFPAY ==
[2023-04-22 13:46] LABS: Alanine Aminotransferase 42 U/L (6-50); Albumin Level 4.2 g/dL (3.5-5.1); Alkaline Phosphatase 142 U/L (38-126); Anion Gap 8 mmol/L (8-16); Aspartate Amino Transferase 47 U/L (17-59); Bilirubin,Total 0.6 mg/dL (0.2-1.3); Blood Urea Nitrogen 17 mg/dL (9-20); Calcium 9.3 mg/dL (8.4-10.2); Carbon Dioxide 22 mmol/L (22-30); Chloride 104 mmol/L (98-107); Estimated Glomerular Filt Rate > 60; Glucose 93 mg/dL (65-110); Potassium 4.9 mmol/L (3.4-5.0); Sodium 134 mmol/L (137-145)
[2023-04-22 14:01] LABS: Vitamin D 25 Hydroxy 75.8 ng/mL
== END 2023-04-22 13:03 | disposition home or self-care (01) ==
LOC: ANHLAB 13:03
PROVIDERS: PCP Emergency Medicine; Visit Provider Emergency Medicine
DX: E55.9 Vitamin D deficiency, unspecified (principal); K21.9 Gastro-esophageal reflux disease without esophagitis
CPT/HCPCS: 36415; 80053; 82306

== ENCOUNTER 2024-04-04 00:09 | Outpatient (CLI) | payer OTHER, MEDICAID, SELFPAY ==
[2024-03-21 16:28] VITALS: BMI 23.4
--- NOTE | 2024-03-29 10:09 | PC.NURSE ---
Spoke with father, Aren regarding medication XARELTO. He verbalizes understanding that the last dose is to be taken on 04/01/2024 and the Endoscopist will instruct them when to restart after the procedure.
[2024-04-04 12:19] VITALS: BP 94/58; PULSE 64; RESP 18; TEMP 36.2; O2SAT 100
--- NOTE | 2024-04-04 12:34 | SUR.PREOP ---
Dr. Mathew evaluated the PEG tube. The tube and site were clean. Dr. Mathew notified family that at this time the tube did not need replacement. The patient's family agreed with Dr. Mathew about not replacing the tube at this. He requested the family call his office with any issues with the tube.
== END 2024-04-04 12:33 | disposition home or self-care (01) ==
PROVIDERS: PCP Family Medicine; Visit Provider Internal Medicine Gastroenterology
PROC: 0DH63UZ Insertion of Feeding Device into Stomach, Percutaneous Approach (ICD-10-PCS; CPT 43246; principal; 2024-04-04 12:30)
DX: Z43.1 Encounter for attention to gastrostomy (principal); Z53.9 Procedure and treatment not carried out, unspecified reason
CPT/HCPCS: 99212; G0463

== ENCOUNTER 2025-02-01 03:19 | Day surgery (SDC) | payer MEDICARE, MEDICAID, SELFPAY ==
[2025-01-30 09:00] VITALS: BMI 22.3
--- NOTE | 2025-01-30 12:49 | PC.NURSE ---
Spoke with Olive(mom) regarding medication Xarelto. She verbalizes understanding that the last dose is to be taken on 01/30/25 and the Endoscopist will instruct them when to restart after the procedure.
[2025-02-01 09:05] VITALS: BP 86/62; PULSE 96; RESP 18; O2SAT 95
--- NOTE | 2025-02-01 09:21 | WPDHPUPDATE1 ---
History and Physical Update Update Date/Time: 02/01/25 09:21 History and Physical has been reviewed, including an updated exam of the patient. There are NO changes in the patient's condition. Risks, benefits, and alternatives have been discussed and questions answered. Patient agrees to proceed with procedure.
--- NOTE | 2025-02-01 09:21 | W.PM.PROC2 ---
Procedure Note - Detailed Date of Procedure 02/01/25 Pre-op Diagnosis deteriorating existing gastrostomy tube Post-op Diagnosis Same Procedure Performed I pulled out peg tube in one piece, then used same gastrostomy site and introduce replacement G-tube 20 Fr, balloon insuflate with 20 ml water and secured in position, hussein 4 cm from skin. Ok to start using tube feeding again and family to call when needs to replace again Surgeon Cory Landers MD Anesthesia None Description of Procedure as above
--- NOTE | 2025-02-01 09:34 | SUR.PREOP ---
Times - Time Out Called: Procedure Start: Procedure End: Position and Devices - Position: Positioning Devices: Pre-Procedure Assessment - Site and Procedure Verified w Patient and/or Others as Appropriate: Verification Coincides w Consent, H&P, Endoscopy Schedule, and Pre-Op Orders: X-Rays/Imaging Studies in Room and/or Implants on Site: Verified Operative Side Marked YES When Applicable: Preop Assessment Completed By: Time Out - [id number] Entire Operative Team Participates and Confirms: yes Correct Patient, Procedure, Side/Site and Position: yes Availability of Implants, Special Equipment and Requests: yes Preop Antibiotics Given within 1 Hour of Incision: N/A Assessment of Skin Prep Dry Time: N/A Prep = Surgery Prep Solution: Site Prepped: Prepped By: Staff - Wrapper Stemmer Hand:Boni Quintana Reimbursement Coordinator: Non Pharmacy Medications - Time: Name: Strength: Dose: Route: Site: Given By: Lot Number: Expiration Date: Actual Procedures - Gastrostomy tube replacement Description: Side: Wound Class: Surgeon:[place] Severity: Preop Diagnosis: Gastrostomy tube Postop Diagnosis:Gastrostomy tube Transfer Data - Destination: [facility] Transfer Method: personal wheelchair Complications:none Untoward Events: Report Given To: Completed Date/Time: 02-01-25 Completed By: [id number]
--- NOTE | 2025-02-01 09:42 | SUR.PREOP ---
[facility] Gastrostomy Tube Right Angle - LOT [id number] [id number] 11-23-25
== END 2025-02-01 09:32 | disposition home or self-care (01) ==
PROVIDERS: PCP Family Medicine; Visit Provider Internal Medicine Gastroenterology
PROC: 0DJ08ZZ Inspection of Upper Intestinal Tract, Via Natural or Artificial Opening Endoscopic (ICD-10-PCS; CPT 43762; principal; 2025-02-01 10:00)
PROC: 0DH63UZ Insertion of Feeding Device into Stomach, Percutaneous Approach (ICD-10-PCS; CPT 43246; 2025-02-01 10:00)
DX: Z43.1 Encounter for attention to gastrostomy (principal); I10 Essential (primary) hypertension; E55.9 Vitamin D deficiency, unspecified; K21.9 Gastro-esophageal reflux disease without esophagitis; R56.9 Unspecified convulsions; G93.1 Anoxic brain damage, not elsewhere classified; Z79.01 Long term (current) use of anticoagulants; Z98.890 Other specified postprocedural states; Z87.891 Personal history of nicotine dependence
CPT/HCPCS: 43762; 99211; G0463